=== PATIENT | female | born 2000 | race Caucasian/White ===

== ENCOUNTER 2021-02-04 11:11 | Emergency (ER) | payer MEDICAID ==
[~2021-02-04] VITALS: Ht 162.6 cm; Wt 55.8 kg
--- NOTE | 2021-02-04 11:20 | NUR ---
Patient to ER bed 7 to gown for evaluation. Side rails up. Report given to WILFRED MASTERS.
[2021-02-04 11:24] VITALS: BP_SYST 104
[2021-02-04] MEDS ORDERED: IBUPROFEN 600 MG TABLET PO ONE (11:30)
--- NOTE | 2021-02-04 11:30 | NUR ---
Pt came to ER after trip and fall last night at approximately 1900. Pt presents with L foot swelling and bruising. Pt rates pain 6/10, resting in [facility], awaiting
--- NOTE | 2021-02-04 11:30 | NUR ---
ER at bedside examining patient.
[2021-02-04] MEDS ORDERED: ACET-2634 PO (12:13)
[2021-02-04] MEDS ORDERED: IBUP-1969 PO (12:13)
[2021-02-04 12:35] VITALS: BP_SYST 104
--- NOTE | 2021-02-04 12:36 | NUR ---
Patient given written and verbal discharge instructions and verbalizes understanding. ER MD discussed with patient the results and treatment provided. Patient in stable condition. ID arm band removed. Rx of tylenol and Ibuprofen given. Patient educated on pain management and to follow up with PMD. Pain Scale 3/10 tolerable for patient . Opportunity for questions provided and answered. Medication side effect fact sheet provided.
== END 2021-02-04 12:35 | disposition home or self-care (01) ==
LOC: SED 11:11
DX: S92.352A Displaced fracture of fifth metatarsal bone, left foot, initial encounter for closed fracture (principal); W01.0XXA Fall on same level from slipping, tripping and stumbling without subsequent striking against object, initial encounter; Y93.89 Activity, other specified; Y92.89 Other specified places as the place of occurrence of the external cause; Y99.8 Other external cause status
CPT/HCPCS: 99283